=== PATIENT | male | born 1975 | race Caucasian/White ===

== ENCOUNTER 2024-12-27 08:18 | Emergency (ER) | payer OTHER, SELFPAY ==
[2024-12-27 08:30] VITALS: BP 124/77; PULSE 83; RESP 18; TEMP 36.3; O2SAT 98
--- NOTE | 2024-12-27 09:06 | ED.EAR ---
HPI - Ear Problem General Chief complaint: Ear Stated complaint: R Ear Time Seen by Provider: 12/27/24 09:00 Source: patient and RN notes reviewed Mode of arrival: ambulatory Limitations: no limitations History of Present Illness HPI Narrative: 49-year-old male patient presents today with a 2 day history of right ear pain, right-sided sore throat that is present only with swallowing, and some mild nasal congestion. He has tried some Tylenol and some cough drops with mild improvement. No cough for fever. No recent antibiotic use. Related Data Allergies Allergy/AdvReac Type Severity Reaction Status Date / Time No Known Allergies Allergy Verified 12/27/24 08:30 PMFSH Comments At time of signature, I have reviewed and agree with nursing past medical, surgical, social and family history unless otherwise noted. Please see nursing chart for further information. There is no relevant family history pertinent to the presenting complaint Exam Narrative: GENERAL: Well-appearing, well-nourished, and in no acute distress. HEAD: Normocephalic, atraumatic. EYES: EOMI. No redness or drainage. Conjunctivae normal. ENT: Mucous membranes pink and moist. Nares clear. No rhinorrhea. Right side of the throat is mildly erythematous without edema or exudate. Right TM is injected and dull. Left TM normal. NECK: Normal AROM. Supple. No lymphadenopathy. CHEST: No respiratory distress. Clear to auscultation. HEART: Regular rate and rhythm. No murmur appreciated. EXTREMITIES: Normal range of motion. No edema. SKIN: Warm, dry, no rash. Capillary refill normal. Normal skin turgor. NEURO: No focal deficits. Alert and oriented x3. Gait steady. PSYCH: Normal affect. No signs of depression or anxiety. Course Course Level of Care: Express Care Visit Vital Signs Vital signs: Vital Signs Temperature 97.4 F L 12/27/24 08:30 Pulse Rate 83 12/27/24 08:30 Respiratory Rate 18 12/27/24 08:30 Blood Pressure 124/77 12/27/24 08:30 Pulse Oximetry 98 12/27/24 08:30 Oxygen Delivery Room Air 12/27/24 08:30 Temperature 97.4 F L 12/27/24 08:30 Pulse Rate 83 12/27/24 08:30 Respiratory Rate 18 12/27/24 08:30 Blood Pressure 124/77 12/27/24 08:30 Pulse Oximetry 98 12/27/24 08:30 Oxygen Delivery Room Air 12/27/24 08:30 Reviewed Medical Decision Making MDM Narrative Medical decision making narrative: 49-year-old male patient presents today with a 2 day history of right ear pain, right-sided sore throat that is present only with swallowing, and some mild nasal congestion. Upon exam,Right side of the throat is mildly erythematous without edema or exudate. Right TM is injected and dull. Left TM normal. Patient will be treated for developing right otitis media with amoxicillin. Recommend also trying some Flonase and switching to an NSAID such as ibuprofen for discomfort. Patient agrees with plan. Vital signs stable. Anticipatory guidance given. Differential Diagnosis Differential Diagnosis: URI, otitis media, otitis externa, ruptured TM, serous otitis Vital Signs Vital Signs: Vital Signs Temperature 97.4 F L 12/27/24 08:30 Pulse Rate 83 12/27/24 08:30 Respiratory Rate 18 12/27/24 08:30 Blood Pressure 124/77 12/27/24 08:30 Pulse Oximetry 98 12/27/24 08:30 Oxygen Delivery Room Air 12/27/24 08:30 Temperature 97.4 F L 12/27/24 08:30 Pulse Rate 83 12/27/24 08:30 Respiratory Rate 18 12/27/24 08:30 Blood Pressure 124/77 12/27/24 08:30 Pulse Oximetry 98 12/27/24 08:30 Oxygen Delivery Room Air 12/27/24 08:30 Critical Care Time Critical Care Time Critical Care Time: No Discharge Plan Discharge Clinical Impression: Acute right otitis media Upper respiratory infection Qualifiers: URI type: unspecified URI Qualified Code(s): J06.9 - Acute upper respiratory infection, unspecified Patient Disposition: Home Condition: Stable Instructions: Ear Infection (ED), Upper Respiratory Infection (DC) Additional Instructions: Please take the amoxicillin as prescribed until gone. Consider starting a nasal steroid such as Flonase and switching Tylenol for an anti-inflammatory such as Aleve or ibuprofen. Follow-up with your PCP next week if symptoms are not improving. Patient Language: Luxembourger Prescriptions: New amoxicillin 875 mg tablet 875 mg PO Q12H 7 Days Qty: 14 0RF Follow-up/Referrals: UNKNOWN,DOCTOR [Primary Care Provider] Time of Disposition: 09:10
== END 2024-12-27 09:14 | disposition home or self-care (01) ==
PROVIDERS: Emergency Provider Nurse Practitioner
DX: H66.91 Otitis media, unspecified, right ear (principal); J06.9 Acute upper respiratory infection, unspecified
CPT/HCPCS: 99213; G0463

== ENCOUNTER 2024-12-29 08:09 | Emergency (ER) | payer OTHER, SELFPAY ==
--- NOTE | 2024-12-29 08:10 | ED.ALLEREA ---
HPI - Allergic Reaction General Stated complaint: reaction Time Seen by Provider: 12/29/24 08:10 Source: patient Mode of arrival: ambulatory Limitations: no limitations History of Present Illness HPI narrative: Jaron is a 49 year old male patient presenting to the clinic today with c/o possible allergic reaction. C/o right sided sore throat and right ear pain started 4 days ago. He feels as though the right side of his throat and uvula are swelling. He was seen in the clinic 2 days ago and has been taking amoxicillin since December 27 for right otitis media. Has not taken his dose this morning. States he feels as though his symptoms are worsening. Having difficulty swallowing and muffled sounding voice. Denies fever, chills or body aches. Denies any difficulty breathing or chest pain. Related Data Allergies Allergy/AdvReac Type Severity Reaction Status Date / Time No Known Allergies Allergy Verified 12/29/24 08:23 Review of Systems Review of Systems: Pertinent positives per HPI. Patient denies any fever, chills, rash, headache, visual changes, dizziness, cough, shortness of breath, chest pain, palpitations, nausea, vomiting, diarrhea, constipation, abdominal pain, or any urinary issues. PMFSH Comments At the time of my signature, I reviewed and agree with the nursing past medical, surgical, social, and family history. There is no relevant family history pertinent to the patient complaint. Exam Narrative: General: Well-developed, well nourished, in no apparent distress Head: Normocephalic, atraumatic Eyes: Pupils equally round and reactive to light bilaterally, EOM intact, sclera and conjunctive clear, no discharge, lids normal Ears: TMs intact and clear, ear canals clear, no drainage, grossly hearing normal. Nose: Nares patent, no discharge, no inflammation, no sinus tenderness. Mouth: Right-sided oral pharynx red with swelling with right sided tonsillar enlargement, right-sided deviation of the uvula, muffled voice, good dentition, MMM. Neck: Supple, trachea midline, no enlargement of anterior or posterior cervical nodes, no thyroid masses or goiter palpable. Cardio: Regular rate and rhythm, s1 and s2 normal, no murmur appreciated. Resp: Clear to auscultation bilaterally, no rhonchi, rales, wheezing or rubs Course Course Emergency Course: Portions of this record may have been created with voice recognition software. Level of Care: Express Care Visit Vital Signs Vital signs: Vital signs reviewed Transfer Transfered to: [facility] Transportation: Other (Private car) Transfer rationale: Higher level of care- ENT consult- suspected right-sided peritonsillar abscess Accepting physician: Dr. Bray ENT/ Dr. Schreiber ER provider Transfer comments: NPO for transfer MDM - Allergic Reaction MDM Narrative Medical decision making narrative: At the time of visit patient is resting comfortably on the exam table. Patient appears to be nontoxic. C/o possible allergic reaction. C/o right sided sore throat and right ear pain started 4 days ago. He feels as though the right side of his throat and uvula are swelling. He was seen in the clinic 2 days ago and has been taking amoxicillin since December 27 for right otitis media. Has not taken his dose this morning. States he feels as though his symptoms are worsening. Having difficulty swallowing and muffled sounding voice. Denies fever, chills or body aches. Denies any difficulty breathing or chest pain. On exam patient has right-sided oral pharynx redness with swelling with right sided tonsillar enlargement, right-sided deviation of the uvula, muffled voice-suspected peritonsillar abscess. 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 Recommend transfer to [facility] for ENT consult. Patient would like to go to [facility]. Called the transfer line at [facility] and spoke with Mckenna. Discussed case with Dr. Bray ENT and Dr Schreiber ER provider and they accept patient for transfer. Patient maintaining airway and vital sign stable. May go by POV. at bedside. NPO for transfer. Differential Diagnosis Differential diagnosis: Likely anaphylaxis, allergic reaction, angioedema and other (Peritonsillar abscess) Discharge Plan Discharge Clinical Impression: Peritonsillar abscess determined by examination Patient Disposition: Acute Care Hospital Condition: Stable Instructions: Antibiotic Form Patient Language: Sami Prescriptions: No Action amoxicillin 875 mg tablet 875 mg PO Q12H 7 Days Qty: 14 0RF Follow-up/Referrals: UNKNOWN,DOCTOR [Primary Care Provider] Time of Disposition: 08:55 Quality NIHSS Nursing Documentation ED NIHSS nursing documentation: reviewed/agree
--- OUTSIDE RECORDS SUMMARY | 2024-12-29 08:11 | XMS_ITS | Clinical Summary ---
Author Organization [facility] Address [address] [place] [phone] Phone Care Team Providers Care Junior Programmer Name Role Phone Eliza Andrea VahidBerny Lyla Primary Care Provider Allergies No known active allergies Medications loratadine (CLARITIN) 10 mg tablet Take 10 mg by mouth daily. Active SUMAtriptan (IMITREX) 100 mg tabletIndications: New daily persistent headache Take 1 Tablet (100 mg) by mouth see administration instructions may repeat in 2 hours; max dose 200mg in 24 hours. 10 Tablet 03/17/19 18 Active fluticasone (FLONASE) 50 mcg/spray [place], SuspensionIndicati ons:Acute rhinosinusitis Administer 2 Sprays in each nostril daily. 16 Gram 1 03/31/19 18 Active Active Problems Problem Noted Date Diagnosed Date New onset headache 03/17/2017 Family History Medical History Relation Name Comments Healthy Father Healthy Mother Colon Cancer Neg Hx Relation Name Status Comments Father Mother Social History Tobacco Use Types Packs/Day Years Used Date Smoking Tobacco: Former Cigarettes Smokeless Tobacco: Never Alcohol Use Standard Drinks/Week Comments Yes 0 (1 standard drink = 0.6 oz pur e alcohol) Sex and Gender Information Value Date Recorded Sex Assigned at Not on file Legal Sex Male 9:31 AM LETTER OF CREDIT DOCUMENT EXAMINER Gender Identity Not on file Sexual Orientation Not on file Last Filed Vital Signs Vital Sign Reading Time Taken Comments Blood Pressure 120/72 03/31/2017 7:56 AM LETTER OF CREDIT DOCUMENT EXAMINER Pulse 84 03/31/2017 7:56 AM LETTER OF CREDIT DOCUMENT EXAMINER Temperature 36.5 C (97.7 F) 03/31/2017 7:56 AM LETTER OF CREDIT DOCUMENT EXAMINER Respiratory Rate - - Oxygen Saturation 96% 03/31/2017 7:56 AM LETTER OF CREDIT DOCUMENT EXAMINER Inhaled Oxygen Concentration - - Weight 79.8 kg (176 lb) 03/31/2017 7:56 AM LETTER OF CREDIT DOCUMENT EXAMINER Height 185.4 cm (6' 1) 03/31/2017 7:56 AM LETTER OF CREDIT DOCUMENT EXAMINER Body Mass Index 23.22 03/31/2017 7:56 AM LETTER OF CREDIT DOCUMENT EXAMINER Plan of Treatment Health Maintenance Due Date Last Done Comments DTAP/TDAP/TD VACCINES (1 - Tdap) 1995 HEPATITIS B VACCINES (1 of 3 - 19+ 3-dose series) 11/1995 COLORECTAL SCREENING 2021 Colorectal Cancer Screening 2021 FIT-DNA Q 3 years 2021 FIT/FOBT Q 1 year 2021 Flex Sig/CT Colonography Q 5 years 2021 Preventative Visit- Commercial 03/06/2024 INFLUENZA VACCINE (#1) [address] [employer] PPO [id number] Care Teams Junior Programmer Relationship Specialty Start Date End Date Berny Kay Jr., DO [address] [place] [address] PCP - General Internal Medicine 03/17/17
--- OUTSIDE RECORDS SUMMARY | 2024-12-29 08:11 | XMS_ITS | Clinical Summary ---
Author Organization [facility] Address [address] [place] [address] Care Team Providers Care Rn Ambulatory Name Role Phone No, Physician Primary Care Provider [phone] Allergies No known active allergies Medications No known medications Active Problems No known active problems Surgical History Surgery Date Site/Laterality Comments FLUORO GUIDED INJECTION SHOULDER RIGHT 03/15/2023 Ri ght Social History Tobacco Use Types Packs/Day Years Used Date Smoking Tobacco: Never Assessed Sex and Gender Information Value Date Recorded Sex Assigned at Not on file Legal Sex Male 7:46 PM SYSTEMS MANAGEMENT CONSULTANT Gender Identity Not on file Sexual Orientation Not on file Obstetrics History Last Filed Vital Signs Vital Sign Reading Time Taken Comments Blood Pressure 118/70 03/15/2023 3:14 PM SYSTEMS MANAGEMENT CONSULTANT Pulse 71 03/15/2023 3:14 PM SYSTEMS MANAGEMENT CONSULTANT Temperature - - Respiratory Rate 16 03/15/2023 3:14 PM SYSTEMS MANAGEMENT CONSULTANT Oxygen Saturation - - Inhaled Oxygen Concentration - - Weight - - Height - - Body Mass Index - - Plan of Treatment Health Maintenance Due Date Last Done Comments Colon Cancer Screening-Colonoscopy 1976 Depression Screening 1976 Hepatitis C Screening 1976 DTaP/Tdap/Td Vaccine (1 - Tdap) 1987 Hepatitis B Screening 1994 Regular Well Visit/Exam 18-64 1994 Covid-19 Vaccine (3 - 2024-2 6 season) 2024 07/05/2020, 06/14/2020 Influenza Vaccine (#1) 2024 Pneumococcal vaccine <65 Aged Out No longer eligible based on patient's age to complete this topic Insurance [facility] [employer] [place] [id number] [facility] [employer] PL[employer] Care Teams Rn Ambulatory Relationship Specialty Start Date End Date No, Physician PCP - General 02/21/23
--- OUTSIDE RECORDS SUMMARY | 2024-12-29 08:11 | XMS_ITS | Clinical Summary ---
Author Organization [facility] Address [address] [place] [id number] Care Team Providers Care Enrollment Management Coordinator Name Role Phone Andrea Amos DO Primary Care Provider Social History Tobacco Use Types Packs/Day Years Used Date Smoking Tobacco: Never Assessed Sex and Gender Information Value Date Recorded Sex Assigned at Not on file Legal Sex Male 6:08 PM CDT Gender Identity Not on file Sexual Orientation Not on file Last Filed Vital Signs Vital Sign Reading Time Taken Comments Blood Pressure 110/74 12/26/2013 8:47 AM CDT Pulse - - Temperature - - Respiratory Rate - - Oxygen Saturation - - Inhaled Oxygen Concentration - - Weight 77.1 kg (170 lb) 12/26/2013 8:47 AM CDT Height 185.4 cm (6' 1) 12/26/2013 8:47 AM CDT Body Mass Index 22.43 12/26/2013 8:47 AM CDT Plan of Treatment Health Maintenance Due Date Last Done Comments Colorectal Cancer Screening Colonoscopy (10 Years) 1976 Annual Physical 1979 Hepatitis C 1994 DTaP, Tdap and Td Vaccines ( 1 - Tdap) 1995 Hepatitis B Vaccines (1 of 3 - 19+ 3-dose series) 1995 COVID-19 Vaccine (2024-2 6 season) 2024 Influenza Adult (#1) 2024 Hepatitis A Vaccines Aged Out No long er eligible based on patient's age to complete this topic Meningococcal B Vaccine Aged Out No l onger eligible based on patient's age to complete this topic Meningococcal Vaccine Aged Out No jim ana eligible based on patient's age to complete this topic Pneumococcal Vaccine: Pediat rics (0 to 5 Years) and At-Risk Patients (6 to 49 Years) Aged Out No longer eligible b ased on patient's age to complete this topic RSV Immunizations Under 20 Months Aged Out No longer eligible based on patient's age to complete this topic Care Teams Enrollment Management Coordinator Relationship Specialty Start Date End Date Andrea Amos DO [address] [facility] [address] [place] [address] PCP - General 05/30/12
--- OUTSIDE RECORDS SUMMARY | 2024-12-29 08:13 | XMS_ITS | Encounter Summary ---
Author Organization [facility] Address [address] [place] [address] Care Team Providers Care Student Nurse Name Role Phone Andrea Amos DO Primary Care Provider [phone] Encounter Details Date Type Department Care Team (Latest Contact Info) Description 01/09/2018 Abstract [facility] , Meg Carmona MD Social History Tobacco Use Types Packs/Day Years Used Date Smoking Tobacco: Never Assessed Sex and Gender Information Value Date Recorded Sex Assigned at Not on file Legal Sex Male 6:08 PM CDT Gender Identity Not on file Sexual Orientation Not on file documented as of this encounter Plan of Treatment Not on file documented as of this encounter Visit Diagnoses Not on filedocumented in this encounter Care Teams Student Nurse Relationship Specialty Start Date End Date Andrea Amos DO [address] [facility] [address] [place] [address] PCP - General 05/30/12 documented as of this encounter
[2024-12-29 08:16] VITALS: BP 134/89; PULSE 114; RESP 18; TEMP 36.5; O2SAT 99
== END 2024-12-29 08:50 | disposition short-term general hospital (02) ==
PROVIDERS: Emergency Provider Nurse Practitioner Family
DX: J36 Peritonsillar abscess (principal)
CPT/HCPCS: 99212; G0463